=== PATIENT | female | born 1950 ===

== ENCOUNTER 2016-09-30 09:51 | Emergency (ER) | payer SELFPAY ==
[2016-09-30] MEDS ORDERED: MORPHINE IM ONE (13:59)
[2016-09-30] MEDS ORDERED: TYLENOL PO ONE (13:59)
--- NOTE | 2016-09-30 14:04 | Emergency Department Report ---
HPI - General Chief Complaint: Fall Time Seen by Provider: 09/30/16 13:59 - HPI HPI: The patient is a 65-year-old female presents for evaluation of left upper back and shoulder pain status post fall. The patient states that she fell one to 2 weeks ago from a stool and landed on her left shoulder. She states that since her fall she has experienced on and off sharp pain in the left upper back and shoulder, currently moderate to severe, exacerbated with movement of the upper back or left arm. The patient denies, injury to the head, headache, neck pain, chest pain, dyspnea, low back pain, abdominal pain, pain to the arms or legs. ED Past Medical Hx - Past Medical History Previous Medical History?: No - Surgical History Past Surgical History?: No - Social History Smoking Status: Unknown if ever smoked Substance Use Type: None - Medications Home Medications: Home Medications Medication Instructions Recorded Confirmed Last Taken Type Cyclobenzaprine HCl [Flexeril 5 MG 5 mg PO Q8HR PRN #20 tab 09/30/16 Unknown Rx TAB] Ibuprofen [Motrin] 800 mg PO Q8HR PRN #15 tablet 09/30/16 Unknown Rx ED Review of Systems ROS: Stated complaint: SHOULDER/BACK DUE TO FALL Other details as noted in HPI Constitutional: denies: fever ENT: denies: throat or neck pain Respiratory: denies: cough, shortness of breath Cardiovascular: denies: chest pain Endocrine: denies unexplained weight loss or gain Gastrointestinal: denies: abdominal pain, nausea Genitourinary: denies: dysuria Musculoskeletal: reports back pain Skin: denies: rash Neurological: denies: headache Hematological/Lymphatic: denies: easy bleeding or easy bruising Psych: denies sadness or hopelessness Physical Exam - Physical Exam Vital Signs: Vital Signs 09/30/16 10:49 Temperature 98.3 F Pulse Rate 72 Blood Pressure 164/85 O2 Sat by Pulse 99 Oximetry Physical Exam: General: well-nourished, well-developed, no acute distress Head: Normocephalic, atraumatic Eyes: normal sclera, EOMI, PERRL ENT: Mucous membranes are pink and moist Neck: trachea midline, neck supple, No neck stiffness, no cervical adenopathy Respiratory: Breath sounds equal bilaterally, no wheezing, rales, or rhonchi Cardio: S1 and S2 present, no murmurs, rubs, gallops, capillary refill is brisk Abdomen: Normoactive bowel sounds, soft abdomen, no tenderness Chest WALL/Back: Tenderness to palpation presents to the left upper thoracic paraspinal musculature, trapezius, supraspinatus, pain is elicited with abduction of the left arm at the shoulder joint, distal sensation, motor fashion , and pulses intact in arms bilaterally, reflexes 2+ symmetric on DTR testing Musc: No midline cervical, thoracic, or lumbar spinous tenderness to palpation present, no spinous step-off or obvious deformity Skin: No rash Neuro: no facial drooping, normal speech Psych: Normal affect ED Course Vital Signs 09/30/16 10:49 Temperature 98.3 F Pulse Rate 72 Blood Pressure 164/85 O2 Sat by Pulse 99 Oximetry ED Medical Decision Making - Medical Decision Making The patient was seen and examined by myself. Findings of exam are consistent with muscle strain of the trapezius and upper left thoracic paraspinal muscles. The patient is given an IM dose of morphine for pain and a tablet of Tylenol. The patient declines offered x-ray of the thoracic and cervical spines. The patient was reevaluated and reported that their symptoms were markedly improved. The patient is stable for discharge with outpatient follow-up. The patient is given follow-up and return instructions. The patient expressed understanding and agreed with the plan. The patient is discharged in stable condition. Critical care attestation.: If time is entered above; I have spent that time in minutes in the direct care of this critically ill patient, excluding procedure time. ED Disposition Clinical Impression: Acute upper back pain Strain of left trapezius muscle Qualifiers: Encounter type: initial encounter Qualified Code(s): S46.812A - Strain of other muscles, fascia and tendons at shoulder and upper arm level, left arm, initial encounter Fall from slipping Qualifiers: Encounter type: initial encounter Qualified Code(s): W01.0XXA - Fall on same level from slipping, tripping and stumbling without subsequent striking against object, initial encounter Disposition: DISCHARGED TO HOME OR SELFCARE Is pt being admited?: No Does the pt Need Aspirin: No Condition: Stable Instructions: Muscle Strain (ED), Back Pain (ED), Musculoskeletal Pain (ED) Referrals: PRIMARY CARE, [Primary Care Provider] - 3-5 Days Time of Disposition: 14:02
[2016-09-30 15:01] VITALS: BP 137/90
== END 2016-09-30 15:00 | disposition home or self-care (01) ==
LOC: ED 09:51
DX: S46.812A Strain of other muscles, fascia and tendons at shoulder and upper arm level, left arm, initial encounter (principal); M54.6 Pain in thoracic spine; W01.0XXA Fall on same level from slipping, tripping and stumbling without subsequent striking against object, initial encounter; Y93.9 Activity, unspecified; Y92.9 Unspecified place or not applicable; Y99.9 Unspecified external cause status
CPT/HCPCS: 96372; 99282; J2270